=== PATIENT | female | born 1960 | race Caucasian/White ===

== ENCOUNTER → 2019-11-27 | Outpatient (CLI) | payer MEDICAID ==
--- NOTE | 2019-11-27 11:20 | MR ---
EXAMINATION TYPE: MR knee RT wo con DATE OF EXAM: 11/27/2019 COMPARISON: None HISTORY: Pain right knee TECHNIQUE: Multiplanar, multisequence imaging of the right knee is performed without IV contrast. FINDINGS: The imaging is limited due to patient body adenitis MEDIAL MENISCUS: Posterior horn of the medial meniscus shows some diffuse abnormal signal and is atte nuated in size, likely a complex tear is present LATERAL MENISCUS: Anterior and posterior horns are intact without tear. CRUCIATE LIGAMENTS: Anterior cruciate ligament is not well-defined, there is abnormal signal present near the insertion, findings suggest at least a partial tear, posterior cruciate ligament is thought to be intact but shows some increased intrinsic signal, there may be strain or partial tear COLLATERAL LIGAMENTS: The medial collateral ligament and lateral collateral ligament complex are inta ct and unremarkable. EXTENSOR MECHANISM: Visualized quadriceps and patellar tendons are intact, the level of insertion of the patellar tendon there is some increased signal, there may be some mucoid degeneration or partial tear.. EFFUSION: There is a small suprapatellar joint effusion extending medially and laterally POPLITEAL CYST: Small semimembranosus gastrocnemius cyst is present measuring 2.2 x 1.0 x 2.6 cm TRICOMPARTMENT SPACES: There is tricompartmental marginal spurring present, joint space loss present especially in the medial compartment CARTILAGE: Grade III-IV chondromalacia is present in the medial compartment, grade 2-III chondromalac ia present laterally and at the posterior patella BONE MARROW SIGNAL: Subchondral geode formation present along the proximal tibia medially. OTHER: Subcutaneous edema present in the prepatellar location. IMPRESSION: Osteoarthritis. Complex tear the posterior horn the medial meniscus. At least a partial tear of the a nterior cruciate ligament is suspected. Joint effusion and Sánchez's cyst. Additional findings above.
== END | disposition home or self-care (01) ==
LOC: RADMRIMAIN 08:51
PROVIDERS: ATTEND Orthopaedic Surgery
DX: M17.11 Unilateral primary osteoarthritis, right knee (principal); S83.241A Other tear of medial meniscus, current injury, right knee, initial encounter; M71.21 Synovial cyst of popliteal space [Baker], right knee; M25.562 Pain in left knee

== ENCOUNTER 2019-12-12 12:03 | Day surgery (SDC) | payer MEDICAID ==
[2019-12-06 15:54] VITALS: BMI 67.3
[~2019-12-12 12:03] MED LIST: DEXAMETHASONE SOD PHOSPHATE 10 MG/ML 1 ML VIAL IV ONE; LACTATED RINGERS 1,000 ML IV SCH; ONDANSETRON 4 MG/2 ML VIAL IVP ONE; Pre Op ABX Message 1 EACH MISC MISCELLANE ONE
[2019-12-12] MEDS ORDERED: LIDOCAINE 1% (10MG/ML) FOR IV START INTRADERMA ONE (12:34)
[2019-12-12] MEDS ORDERED: GLYCOPYRROLATE 0.2 MG/ML 2 ML VIAL ONE (13:18)
[2019-12-12] MEDS ORDERED: NEOSTIGMINE 1 MG/ML 10 ML VIAL ONE (13:18)
[2019-12-12] MEDS ORDERED: PROPOFOL 10 MG/ML 20 ML VIAL IV ONE (13:18)
[2019-12-12] MEDS ORDERED: LIDOCAINE 1% INJ 10MG/ML (20 ML MDV) ONE (13:18)
[2019-12-12] MEDS ORDERED: SUCCINYLCHOLINE CHLORIDE VIAL 200 MG/10 ML VIAL IV ONE (13:18)
[2019-12-12] MEDS ORDERED: MIDAZOLAM 2 MG/2 ML VIAL ONE (13:18)
[2019-12-12] MEDS ORDERED: fentaNYL (PF) 50 MCG/ML 2 ML AMP ONE (13:18)
[2019-12-12] MEDS ORDERED: ROCURONIUM 10 MG/ML (10 ML VIAL) IV ONE (13:18)
[2019-12-12] MEDS ORDERED: SODIUM CHLORIDE 0.9% 100 ML with ceFAZolin 3,000 MG IV ONE ×2 (13:23)
[2019-12-12] MEDS ORDERED: BUPIVACAINE (PF) 0.25% 30 ML VIAL SQ ONE (13:54)
[2019-12-12] MEDS: HYDROmorphone 0.5 MG/0.5 ML SYRINGE IVP PRN ×4 (14:23→14:50)
--- NOTE | 2019-12-12 14:25 | P.OP ---
Date of Procedure: 12/12/19 Preoperative Diagnosis: 1. torn medial meniscus right knee 2. Osteoarthritis right knee Postoperative Diagnosis: 1. torn medial meniscus right knee 2. Torn lateral meniscus right knee 3. Grade 2-3 chondromalacia of the medial femoral, lateral femoral, and patellofemoral compartments 4. Synovitis Procedure(s) Performed: 1. arthroscopy of the right knee with partial medial meniscectomy (25% of meniscus excised) 2. Partial lateral meniscectomy (10% of the meniscus excised) 3. Chondroplasty of the medial femoral, lateral femoral, patellofemoral compartments 4. Partial synovectomy of the medial femoral, lateral femoral, patellofemoral compartments [facility] Surgeon: Casa Navas Estimated Blood Loss (ml): 5 Pathology: none sent Condition: stable Disposition: PACU Indications for Procedure: this is a 59-year-old female presented my office with pain in her right knee. An MRI demonstrated torn medial meniscus and osteoarthritis of right knee after discussing the surgical nonsurgical treatment options at length she was to proceed with arthroscopic debridement of right knee and informed consent was obtained. Operative Findings: the operative findings are consistent with a torn medial and lateral meniscus as well as grade 2-3 chondral malacia of the medial femoral, lateral femoral, patellofemoral compartments and synovitis Description of Procedure: Patient was seen and evaluated in the preoperative area, the operative site was marked with a skin marker. The patient was then brought to the operating room and given 1 g of Ancef intravenously. A general anesthetic was administered by the anesthesia department. Tourniquet was placed on the right upper thigh and theright lower extremity was then prepped and draped in usual sterile fashion. A universal timeout was then performed confirming the patient's name, surgical site, ALLERGIES, and consent. The limb was then exsanguinated and tourniquet insufflated to 350 mmHg. Standard inferior medial and inferior lateral portals were established in the knee. The trochar was inserted in the inferolateral portal. Examination began at the patellofemoral joint. There is noted to be grade 2-3 chondral malacia the patellofemoral compartment and a moderate amount of synovitis. Next the medial compartment was visualized. There was a tear of the posterior horn of the medial meniscus. There was grade 2-3 chondral malacia the mediofemoral compartment and synovitis. The notch area was then visualized and thr ACL was intact. The Lateral compartment was then visualized and the lateral meniscus was found to have a tear of the posterior horn of the meniscus, evidence of grade 2-3 chondromalacia, and a mild amount of synovitis. Next, using an arthroscopic shaver and a biter, partial medial meniscectomy was performed stable margins. Approximately 25% of meniscus was excised. A partial lateral meniscectomy was also performed with approximately 10% of meniscus excised. A partial synovectomy is performed the medial femoral, lateral femoral, patellofemoral compartments. Chondroplasty was also performed of the medial femoral, lateral femoral, and patellofemoral compartments of the knee. Knee was then copiously irrigated, instruments removed, incisions were closed with 4-0 nylon. A sterile dressing was then applied, and the tourniquet was released. Patient was then transferred to recovery room in stable condition.
[2019-12-12] MEDS ORDERED: KETOROLAC 15 MG/ML 1 ML VIAL IVP ONE (14:35)
[2019-12-12 14:46] VITALS: TEMP 97.3
[2019-12-12] MEDS ORDERED: LACTATED RINGERS 1,000 ML IV ONE (15:24)
[2019-12-12 15:34] VITALS: RESP 16
[2019-12-12] MEDS ORDERED: HYDROcodone/APAP 7.5-325MG 1 EACH TAB PO ONE (15:40)
[2019-12-12] MEDS ORDERED: HYDROcodone/APAP 7.5-325MG 1 EACH TAB ONE (15:43)
[2019-12-12 15:47] VITALS: BP 117/68; PULSE 80
== END 2019-12-12 16:40 | disposition home or self-care (01) ==
LOC: OR 12:03
PROVIDERS: ATTEND Orthopaedic Surgery
DX: M23.203 Derangement of unspecified medial meniscus due to old tear or injury, right knee (principal); M23.200 Derangement of unspecified lateral meniscus due to old tear or injury, right knee; M17.11 Unilateral primary osteoarthritis, right knee; M94.261 Chondromalacia, right knee; M65.9 Synovitis and tenosynovitis, unspecified; F32.9 Major depressive disorder, single episode, unspecified; R51.9 Headache, unspecified; Z87.891 Personal history of nicotine dependence; Z98.891 History of uterine scar from previous surgery; Z98.890 Other specified postprocedural states; Z83.3 Family history of diabetes mellitus; Z82.49 Family history of ischemic heart disease and other diseases of the circulatory system; Z79.1 Long term (current) use of non-steroidal anti-inflammatories (NSAID); Z79.890 Hormone replacement therapy; Z79.899 Other long term (current) drug therapy; Z88.5 Allergy status to narcotic agent; Z88.8 Allergy status to other drugs, medicaments and biological substances
CPT/HCPCS: 29880; J2250; J0330; J1100; J2710; J2405; J0690; J2001; J3010; J1885; J2704; J1170

== ENCOUNTER → 2021-10-08 | Outpatient (CLI) | payer MEDICAID ==
[2021-10-08 16:17] VITALS: PULSE 89; TEMP 98.7; BMI 70.0
--- NOTE | 2021-10-08 16:49 | P.HPBAR ---
Bariatric H&P - History & Physicial H&P Date: 10/08/21 History & Physicial: Visit/CC: new patient Patient initial contact: Initial weight: 158.939 kg Initial weight in pounds: 350.40 Height: 5 ft 3.75 in Initial BMI: 60.6 Last weight: Current weight: 183.705 kg Current weight in pounds: 405.00 Current BMI: 70.0 [place] body weight (based on NIH guidelines): 53.864 kg Excess body weight loss: The patient is a 61 year-old F who presents for Bariatric Assessment. She comes in after back surgery. She has tried 6 years ago. She has more medical co-morbidities. She is looking into the sleeve. She has sleep apnea. Was seen before. 7 months needed. Has new co-morbidities. Past Medical History Past Medical History: Fibromyalgia, GERD/Reflux, Musculoskeletal Disorder, Osteoarthritis (OA), Sleep Apnea/CPAP/BIPAP, Thyroid Disorder Additional Past Medical History / Comment(s): Migraines, oxx SOB, gout, kidney/ureter stones, Lower back pain, Bilat knee pain. Uses CPAP. Varicose veins, poor circulation legs w/ edema BLE. "borderline" DM History of Any Multi-Drug Resistant Organisms: None Reported Past Surgical History: Back Surgery, Section, Cholecystectomy, Orthopedic Surgery, Tonsillectomy, Uterine Ablation Additional Past Surgical History / Comment(s): C-S x2, D&C x2, neck fusion, ACL left knee, EGD, Left ankle tendon/bone repair. Rt hip band stretched. Past Anesthesia/Blood Transfusion Reactions: No Reported Reaction Past Psychological History: Anxiety, Depression Additional Psychological History / Comment(s): occ panic attack Smoking Status: Former smoker Past Alcohol Use History: Occasional Past Drug Use History: None Reported - Past Family History Mother Family Medical History: Cancer, Deep Vein Thrombosis (DVT) Additional Family Medical History / Comment(s): lung cancer Sister(s) Family Medical History: Deep Vein Thrombosis (DVT) Surgical - Exam Vital Signs Temp Pulse 98.7 F 89 10/08/21 16:06 10/08/21 16:06 Bariatric Checklist Checklist: Plan: Checklist: EGD: 1. Hiatal hernia: 2. H. Pylori: HgbA1c: Vitamin D: Smoking: Former smoker Primary care physician referral: Josette Charles ([facility]) Psychiatry clearance: Cardiology clearance: Sleep study: Diet journal: VTE risk score: VTE risk level: Rehab needs at discharge:
[2021-10-09 09:22] VITALS: BP 148/73
== END | disposition home or self-care (01) ==
LOC: BARWHC3 15:38
PROVIDERS: ATTEND Surgery Plastic and Reconstructive Surgery
DX: E66.01 Morbid (severe) obesity due to excess calories (principal); K21.9 Gastro-esophageal reflux disease without esophagitis; E07.9 Disorder of thyroid, unspecified; M19.90 Unspecified osteoarthritis, unspecified site; Z68.44 Body mass index [BMI] 60.0-69.9, adult
CPT/HCPCS: 99213

== ENCOUNTER → 2021-11-26 | Outpatient (CLI) | payer MEDICAID ==
[2021-11-26 13:00] LABS: INR 0.9 (<1.2); Partial Thromboplastin Time 38.5 sec (22.0-30.0); Prothrombin Time 10.3 sec (9.0-12.0)
[2021-11-26 18:17] LABS: HCT 41.5 % (37.2-46.3); HGB 12.9 g/dL (12.0-15.0); MCH 29.8 pg (27.0-32.0); MCHC 31.1 g/dL (32.0-37.0); MCV 95.8 fL (80.0-97.0); Mean Platelet Volume 10.4 fL (9.5-12.2); NRBC Per 100 WBC 0 /100 WBCS (0.0-0.0); Platelet Count 225 X 10*3/uL (140-440); RBC 4.33 X 10*6/uL (4.10-5.20); RDW 12.8 % (11.5-14.5)
[2021-11-26 18:31] LABS: % Iron Saturation 23.12 (12.00-45.00); ALT 42 U/L (8-44); AST 41 U/L (13-35); African American GFR (CKD) 109.6 (60.0-200.0); Albumin/Globulin Ratio 1.59 (1.60-3.17); Alkaline Phosphatase 77 U/L (41-126); BUN/Creat Ratio 19.08 Ratio (12.00-20.00); Blood Urea Nitrogen 12.9 mg/dL (9.0-27.0); Calcium 9.1 mg/dL (8.7-10.3); Carbon Dioxide 29.1 mmol/L (20.0-27.5); Chloride 103 mmol/L (96-109); Globulin 2.5 g/dL (1.6-3.3); Glucose 115 mg/dL (70-110); Iron 82 ug/dL (50-170); Magnesium 1.8 mg/dL (1.5-2.4); Non-African American GFR(CKD) 94.6 (60.0-200.0); Phosphorus 3.4 mg/dL (2.4-5.1); Potassium 4.1 mmol/L (3.5-5.5); Sodium 140 mmol/L (135-145); Total Iron Binding Capacity 354 ug/dL (228-460); Total Protein 6.5 g/dL (6.2-8.2)
[2021-11-26 18:47] LABS: Chol/HDL Ratio 2.67 Ratio; LDL Cholesterol,Calculated 88.6 mg/dL (0.0-131.0); Prealbumin 17.1 mg/dL (18.0-42.0)
[2021-11-27 12:42] LABS: Zinc, Serum 63 ug/dL (60-130)
[2021-11-28 08:39] LABS: Vitamin A 39 ug/dL (38-106)
== END | disposition home or self-care (01) ==
LOC: LABWHC1 11:58
PROVIDERS: ATTEND Surgery Plastic and Reconstructive Surgery
DX: E66.01 Morbid (severe) obesity due to excess calories (principal); D50.8 Other iron deficiency anemias; K91.2 Postsurgical malabsorption, not elsewhere classified; E44.0 Moderate protein-calorie malnutrition; K74.1 Hepatic sclerosis; N19 Unspecified kidney failure; T56.894A Toxic effect of other metals, undetermined, initial encounter; K50.90 Crohn's disease, unspecified, without complications; Z71.51 Drug abuse counseling and surveillance of drug abuser; E89.1 Postprocedural hypoinsulinemia; E55.9 Vitamin D deficiency, unspecified
CPT/HCPCS: 84255; 84134; 84425; 80061; 80053; 82607; 82728; 82525; 82746; 83540; 83550; 83735; 84100; 84443; 84590; 84630; 85027; 85610; 85730; 82306; 80323; 83970; 80307; 93005; 36415; G0482; 83036

== ENCOUNTER 2021-12-01 07:25 | Day surgery (SDC) | payer MEDICAID ==
[2021-11-28 10:51] VITALS: BMI 68.5
[~2021-12-01 07:25] MED LIST changes: -DEXAMETHASONE SOD PHOSPHATE 10 MG/ML 1 ML VIAL IV ONE; +LIDOCAINE 1% (10MG/ML) FOR IV START INTRADERMA PRN; -ONDANSETRON 4 MG/2 ML VIAL IVP ONE; -Pre Op ABX Message 1 EACH MISC MISCELLANE ONE
[2021-12-01 08:12] VITALS: TEMP 97.1
--- NOTE | 2021-12-01 08:20 | P.GSHP ---
History of Present Illness H&P Date: 12/01/21 CHIEF COMPLAINT: GERD and colon screen HISTORY OF PRESENT ILLNESS: The patient is a 61-year-old female who presents with gastroesophageal reflux disease and need for colon screen. Upper and lower endoscopy were offered for further evaluation and management. PAST MEDICAL HISTORY: Please see list. PAST SURGICAL HISTORY: Please see list. MEDICATIONS: Please see list. ALLERGIES: Please see list. SOCIAL HISTORY: No illicit drug use FAMILY HISTORY: No reports of Crohn disease or ulcerative colitis. REVIEW OF ORGAN SYSTEMS: CONSTITUTIONAL: No reports of fevers or chills. GI: Denies any blood in stools or constipation. PHYSICAL EXAM: VITAL SIGNS: Stable GENERAL: Well-developed pleasant in no acute distress. HEENT: No scleral icterus. Extraocular movements grossly intact. Moist buccal mucosa. NECK: Supple without lymphadenopathy. CHEST: Unlabored respirations. Equal bilateral excursions. CARDIOVASCULAR: Regular rate and rhythm. Distal 2+ pulses. ABDOMEN: Soft, nondistended. MUSCULOSKELETAL: No clubbing, cyanosis, or edema. ASSESSMENT: 1. Gastroesophageal reflux disease 2. Colon screen. PLAN: 1. Recommend proceeding with an upper and lower endoscopy Past Medical History Past Medical History: Fibromyalgia, GERD/Reflux, Musculoskeletal Disorder, Osteoarthritis (OA), Sleep Apnea/CPAP/BIPAP, Thyroid Disorder Additional Past Medical History / Comment(s): Migraines, oxx SOB, gout, kidney/u reter stones, Lower back pain, Bilat knee pain. Uses CPAP. Varicose veins, poor circulation legs w/ edema BLE. "borderline" DM History of Any Multi-Drug Resistant Organisms: None Reported Past Surgical History: Back Surgery, Section, Cholecystectomy, Orthopedic Surgery, Tonsillectomy, Uterine Ablation Additional Past Surgical History / Comment(s): C-S x2, D&C x2, neck fusion, ACL left knee, EGD, Left ankle tendon/bone repair. Rt hip band stretched. COLONOSCOPY Past Anesthesia/Blood Transfusion Reactions: No Reported Reaction Smoking Status: Former smoker - Past Family History Mother Family Medical History: Cancer, Deep Vein Thrombosis (DVT) Additional Family Medical History / Comment(s): lung cancer Sister(s) Family Medical History: Deep Vein Thrombosis (DVT) Medications and Allergies Home Medications Medication Instructions Recorded Confirmed Type DULoxetine HCL [Cymbalta] 90 mg PO HS 09/29/17 12/01/21 History HYDROcodone/APAP 5-325MG [[place] 1 tab PO Q4H PRN 09/29/17 12/01/21 History 5-325] Ibuprofen [Motrin] 800 mg PO TID PRN 09/29/17 12/01/21 History Levothyroxine Sodium [Synthroid] 137 mcg PO HS 09/29/17 12/01/21 History Calcium Carbonate [Tums] 500 - 1,000 mg PO DIRECTED PRN 12/06/19 12/01/21 History Mirabegron [Myrbetriq] 50 mg PO HS 10/08/21 12/01/21 History Allergies Allergy/AdvReac Type Severity Reaction Status Date / Time carbamazepine [From Tegretol] Allergy Intermediate Rash/Hives Verified 12/01/21 08:03 adhesive tape Allergy red itchy Verified 12/01/21 08:03 skin morphine AdvReac Intermediate shakes Verified 12/01/21 08:03 omeprazole AdvReac Diarrhea Verified 12/01/21 08:03 Surgical - Exam Vital Signs Temp Pulse Resp BP Pulse Ox 97.1 F L 89 15 155/67 97 12/01/21 08:11 12/01/21 08:11 12/01/21 08:11 12/01/21 08:11 12/01/21 08:11
[2021-12-01] MEDS ORDERED: MIDAZOLAM 2 MG/2 ML VIAL ONE (08:34)
[2021-12-01] MEDS ORDERED: PROPOFOL 10 MG/ML 20 ML VIAL IV ONE (08:34)
[2021-12-01] MEDS ORDERED: LIDOCAINE 2% INJ 20 MG/ML (2 ML VIAL) ONE (08:34)
--- NOTE | 2021-12-01 09:08 | P.PCN ---
Date of Procedure: 12/01/21 Description of Procedure: PREOPERATIVE DIAGNOSIS: Colonoscopy screening POSTOPERATIVE DIAGNOSIS: Tubular adenoma transverse colon Sigmoid diverticulosis Internal hemorrhoids, grade 2 OPERATION: Colonoscopy to the ileocecal valve and appendiceal orifice, cecum Colonoscopy with hot snare polypectomy SURGEON: Kellie Pittman MD. ANESTHESIA: MAC. INDICATIONS: The patient is an 61-year-old female who presents for colonoscopy screening. Benefits and risks were described and informed consent was obtained. DESCRIPTION OF PROCEDURE: The patient had undergone Sutab prep. The patient had been brought into the operating room and laid in the left lateral decubitus position. After adequate intravenous sedation, the rectum was examined with 2% lidocaine jelly. No external hemorrhoids were encountered. The rectal tone was within normal limits. No lesions were palpated in the rectal vault. An Olympus colonoscope was advanced until the cecum, ileocecal valve and appendiceal orifice were clearly viewed. The prep was fair. Sigmoid diverticulosis was encountered. Colonic polyps were found and removed. No evidence of focal colitis was found. Retroflexion of the scope demonstrated grade 2 internal hemorrhoids without active bleeding or inflammation. The colon was desufflated. The patient had tolerated the procedure well. Withdrawal time was over 6 minutes. FINDINGS: Aronchick preparation quality scale 3 (1-5) Internal hemorrhoids, grade 2 No external hemorrhoids No arteriovenous malformations. Sigmoid diverticulosis, moderate Removal of 1 polyps: - Snare polypectomy proximal transverse colon, 5 mm tubulovillous adenoma polyp. No focal colitis. RECOMMENDATIONS: Repeat colonoscopy in 3 years, 2024 Plan - Discharge Summary Discharge Rx Participant: No New Discharge Prescriptions: Continue HYDROcodone/APAP 5-325MG [[place] 5-325] 1 tab PO Q4H PRN PRN Reason: Pain DULoxetine HCL [Cymbalta] 90 mg PO HS Levothyroxine Sodium [Synthroid] 137 mcg PO HS Ibuprofen [Motrin] 800 mg PO TID PRN PRN Reason: Pain Calcium Carbonate [Tums] 500 - 1,000 mg PO DIRECTED PRN PRN Reason: GERD Mirabegron [Myrbetriq] 50 mg PO HS Discharge Medication List DULoxetine HCL [Cymbalta] 90 mg PO HS 09/29/17 [History] HYDROcodone/APAP 5-325MG [Marana 5-325] 1 tab PO Q4H PRN 09/29/17 [History] Ibuprofen [Motrin] 800 mg PO TID PRN 09/29/17 [History] Levothyroxine Sodium [Synthroid] 137 mcg PO HS 09/29/17 [History] Calcium Carbonate [Tums] 500 - 1,000 mg PO DIRECTED PRN 12/06/19 [History] Mirabegron [Myrbetriq] 50 mg PO HS 10/08/21 [History] Follow up [facility]ment(s[facility]Ref[facility] [place] [facility] Patient Instructions/Handouts: Diverticulosis Diet (GEN), Diverticulosis (DC) Activity/Diet/Wound Care/Special Instructions: Repeat colonoscopy in 3 years, 2024 Discharge Disposition: HOME SELF-CARE
--- NOTE | 2021-12-01 09:12 | P.PCN ---
Date of Procedure: 12/01/21 Description of Procedure: PREOPERATIVE DIAGNOSIS: Gastroesophageal reflux disease. Morbid obesity. POSTOPERATIVE DIAGNOSIS: Gastroesophageal reflux disease. Morbid obesity. Gastritis. OPERATION: Esophagogastroduodenoscopy with biopsies along antrum and duodenal SURGEON: Kellie Pittman MD ANESTHESIA: MAC. INDICATIONS: The patient is a 61-year-old female who presents with reflux disease. Benefits and risks of the procedure were described. Informed consent was obtained. DESCRIPTION: The patient was brought into the endoscopy suite and laid in the left lateral decubitus position. An Olympus gastroscope was passed along the posterior oropharynx down to the distal esophagus where the squamocolumnar junction was encountered at 40 cm from the incisors. The stomach was entered and no bile reflux was found. Additional findings are listed below. Biopsies with cold forceps were obtained of the antrum. The first through third portion of the duodenum was examined. Retroflexion of the scope confirmed Hill grade 2 lower esophageal valve. The squamocolumnar junction demonstrated LA grade B erosive esophagitis. The stomach was desufflated. The patient tolerated the procedure well. FINDINGS: Squamocolumnar junction 40 cm from the incisors. Diaphragmatic hiatus at 40 cm. Hill grade 2 lower esophageal valve. LA grade B erosive esophagitis with bile reflux Cold forceps biopsies obtained of duodenum Chronic gastritis RECOMMENDATIONS: Upper endoscopy as needed.
[2021-12-01 09:16] VITALS: RESP 16
[2021-12-01 09:35] VITALS: BP 105/59; PULSE 81
== END 2021-12-01 09:42 | disposition home or self-care (01) ==
LOC: ORWHC2ENDO 07:25
PROVIDERS: ATTEND Surgery Plastic and Reconstructive Surgery
DX: Z12.11 Encounter for screening for malignant neoplasm of colon (principal); K29.50 Unspecified chronic gastritis without bleeding; K31.9 Disease of stomach and duodenum, unspecified; K63.5 Polyp of colon; K57.30 Diverticulosis of large intestine without perforation or abscess without bleeding; K64.8 Other hemorrhoids; K21.9 Gastro-esophageal reflux disease without esophagitis; E66.01 Morbid (severe) obesity due to excess calories; M79.7 Fibromyalgia; M19.90 Unspecified osteoarthritis, unspecified site; G47.33 Obstructive sleep apnea (adult) (pediatric); E07.9 Disorder of thyroid, unspecified; G43.909 Migraine, unspecified, not intractable, without status migrainosus; M10.9 Gout, unspecified; N20.2 Calculus of kidney with calculus of ureter; M54.50 Low back pain, unspecified; M25.562 Pain in left knee; M25.561 Pain in right knee; Z98.890 Other specified postprocedural states; Z68.41 Body mass index [BMI] 40.0-44.9, adult; Z90.49 Acquired absence of other specified parts of digestive tract; Z98.891 History of uterine scar from previous surgery; Z87.891 Personal history of nicotine dependence; Z80.9 Family history of malignant neoplasm, unspecified; Z83.2 Family history of diseases of the blood and blood-forming organs and certain disorders involving the immune mechanism; Z79.1 Long term (current) use of non-steroidal anti-inflammatories (NSAID); Z79.899 Other long term (current) drug therapy; Z79.890 Hormone replacement therapy; Z88.5 Allergy status to narcotic agent; Z88.8 Allergy status to other drugs, medicaments and biological substances; Z91.040 Latex allergy status
CPT/HCPCS: 88305; 45385; 43239; J2250; J2704; J2001

== ENCOUNTER → 2022-03-02 | Outpatient (CLI) | payer MEDICAID ==
[2022-03-02 11:27] VITALS: BMI 69.5
== END ==
LOC: BARWHC3 08:29
PROVIDERS: ATTEND Surgery Plastic and Reconstructive Surgery
DX: Z71.3 Dietary counseling and surveillance (principal); E66.01 Morbid (severe) obesity due to excess calories; Z88.8 Allergy status to other drugs, medicaments and biological substances; Z88.5 Allergy status to narcotic agent; Z91.048 Other nonmedicinal substance allergy status; Z68.44 Body mass index [BMI] 60.0-69.9, adult; Z87.891 Personal history of nicotine dependence
CPT/HCPCS: 97804

== ENCOUNTER → 2022-06-24 | Outpatient (CLI) | payer MEDICAID ==
[2022-06-24 14:21] VITALS: BP 144/74; PULSE 84; TEMP 98.4; BMI 69.7
--- NOTE | 2022-06-24 14:45 | P.BASOAP ---
Subjective Progress Note Date: 06/24/22 She does not take bsg at home. Arpan has lost 15 pounds.Consent signed for sleeve. Objective - Vital Signs Vital signs: Vital Signs Temp 98.4 F 06/24/22 14:16 Pulse 84 06/24/22 14:16 Resp BP 144/74 06/24/22 14:16 Pulse Ox FiO2 Intake & Output 06/23/22 06/24/22 06/24/22 18:59 06:59 18:59 Weight 182.798 kg Assessment/Plan Plan: Date: 06/24/22 Initial Weight: 183.705 kg Initial BMI: 70.0 Current Weight: 182.798 kg Current BMI: 69.7 Type of Surgery: Total Volume in Band: Previous Volume: Volume Removed: Volume Added: Band Size:
[2022-06-25 02:14] LABS: African American GFR (CKD) 107.6 (60.0-200.0); Albumin 4.3 g/dL (3.8-4.9); Albumin/Globulin Ratio 1.59 (1.60-3.17); Anion Gap 12.5 mmol/L (10.00-18.00); BUN/Creat Ratio 21.57 Ratio (12.00-20.00); Blood Urea Nitrogen 15.1 mg/dL (9.0-27.0); Calcium 9.7 mg/dL (8.7-10.3); Carbon Dioxide 24.5 mmol/L (20.0-27.5); Globulin 2.7 g/dL (1.6-3.3); Non-African American GFR(CKD) 92.9 (60.0-200.0); Potassium 4.1 mmol/L (3.5-5.5); Total Bilirubin 0.4 mg/dL (0.30-1.20)
[2022-06-25 02:24] LABS: Basophils % (A) 0.9 %; Eosinophils # (A) 0.09 X 10*3/uL (0.04-0.35); Eosinophils % (A) 0.9 %; HCT 40.9 % (37.2-46.3); HGB 13.3 g/dL (12.0-15.0); Immature Grans, Automated 0.3 %; Lymphocytes % (A) 38.9 %; MCH 31.4 pg (27.0-32.0); MCHC 32.5 g/dL (32.0-37.0); MCV 96.5 fL (80.0-97.0); Mean Platelet Volume 10.6 fL (9.5-12.2); Monocytes # (A) 0.63 X 10*3/uL (0.20-1.00); NRBC Per 100 WBC 0 /100 WBCS (0.0-0.0); Neutrophils # (A) 5.59 X 10*3/uL (1.80-7.70); Platelet Count 254 X 10*3/uL (140-440); RBC 4.24 X 10*6/uL (4.10-5.20); RDW 13.9 % (11.5-14.5); WBC 10.54 X 10*3/uL (4.50-10.00)
== END ==
LOC: BARWHC3 13:52
PROVIDERS: ATTEND Surgery Plastic and Reconstructive Surgery
DX: E66.01 Morbid (severe) obesity due to excess calories (principal); Z68.44 Body mass index [BMI] 60.0-69.9, adult; Z88.5 Allergy status to narcotic agent; Z91.048 Other nonmedicinal substance allergy status; Z87.891 Personal history of nicotine dependence
CPT/HCPCS: 80053; 85025; 99211

== ENCOUNTER 2022-06-29 13:10 | Inpatient (IN) | payer MEDICAID ==
--- NOTE | 2022-06-29 08:20 | P.GSHP ---
History of Present Illness H&P Date: 06/29/22 CHIEF COMPLAINT: Morbid obesity HISTORY OF PRESENT ILLNESS: Vianney Gruber is a 62-year-old female who presents with lifelong morbid obesity. She has been undergoing weight loss options since 2016, 7 years now. She presents with continued weight gain from 348 pounds to 385 pounds in the past 5 years. For her height of 5 foot 3 inches, her body mass index has increased from 61.8 to 68.4. She is looking into the sleeve gastrectomy . PAST MEDICAL HISTORY: 1. Moderate to severe obstructive sleep apnea. 2. Anxiety. 3. Fibromyalgia. 4. Tobacco in remission. 5. Hypothyroidism. 6. Osteoarthritis of the lower back. 7. Osteoarthritis of the left ankle. 8. Osteoarthritis of the knee. 9. Gastroesophageal reflux disease. 10. Morbid obesity, initial BMI 66.7 11. Dyspnea. 12. Gastritis. PAST SURGICAL HISTORY: 1. ACL repair the knee. 2. Lysis of tendon along the right thigh. 3. Sleep apnea titration with CPAP. 4. Colonoscopy. 5. Cholecystectomy. 6. EGD. MEDICATIONS: 1. Xanax. 2. Cymbalta 3. Hydrocodone acetaminophen. 4. Levothyroxine. 5. Motrin. 6. Zantac. ALLERGIES: 1. TEGRETOL. 2. ADHESIVE TAPE. 3. MORPHINE. SOCIAL HISTORY: Former tobacco use. No reports of overt food allergies; however, she has intolerance to onions. FAMILY HISTORY: Pertinent for morbid obesity as well as diverticulitis. No history of esophageal or stomach cancer. No history of ulcerative colitis or Crohn's disease. REVIEW OF ORGAN SYSTEMS: CONSTITUTIONAL: [place] body weight of 140 pounds. Highest weight of 370 pounds. HEENT: No active troubles with vision or hearing. Denies dysphagia. ENDOCRINE: Has hypothyroidism. No overt evidence of diabetes type 2. RESPIRATORY: Has obstructive sleep apnea, moderate to severe. She requires CPAP machine; however, she is noncompliant. She reports dyspnea on exertion. CARDIOVASCULAR: No reports of recent chest pain or heart attack. GASTROINTESTINAL: Has gastroesophageal reflux disease including gastritis. MUSCULOSKELETAL: Reports lower back pain including osteoarthritis of the knee as well as left ankle pain. History of fibromyalgia. No reports of stroke or seizure disorder. Denies headaches. HEMATOLOGIC: No reports of DVTs or easy bruising or bleeding. PSYCH: History of depression currently on antidepressant medications. GENITOURINARY: New kidney stones. No blood in urine. DIETARY HISTORY: Prior history of medications for obesity including Contrave, prior medical supervised weight loss performed. PHYSICAL EXAM: GENERAL: Well-developed female no acute distress. ABDOMEN: Obese, soft, nontender, nondistended. HEENT: No scleral icterus. Extraocular movements grossly intact. Moist buccal mucosa. NECK: Supple without lymphadenopathy. CHEST: Nonlabored respirations with equal bilateral excursions. CARDIOVASCULAR: Regular rate and rhythm. MUSCULOSKELETAL: No clubbing, cyanosis, or edema. NEURO: No focal or lateralizing signs. Cranial nerves II through XII grossly within normal limits. PSYCH: Appropriate affect. Alert and oriented to person, place and time. SKIN: Well perfused. Good skin turgor. ASSESSMENT: 1. Morbid obesity due to excess calories. 2. Body mass index initial 66.7 3. Moderate to severe chronic obstructive sleep apnea, noncompliant with therapy. 4. Former tobacco use. 5. Hypothyroidism. 6. Fibromyalgia. 7. Gastroesophageal reflux disease. 8. Anxiety. 9. Family history of morbid obesity. 10. Osteoarthritis of lower back secondary to morbid obesity. 11. Osteoarthritis of the knee secondary to morbid obesity. 12. Osteoarthritis of the left ankle secondary to morbid obesity. 13. Prior history of depression. 14. Gastritis. 15. Adverse reaction to omeprazole. PLAN: 1. Bariatric options between a sleeve, band and a Rashad-en-Y gastric bypass were reviewed in detail. The patient elected for a sleeve gastrectomy. Robotic assisted approach described. 2. The [place] [facility] Data was also reviewed with benefits and risks as described. 3. An 8 page second-generation bariatric consent form was reviewed in detail including potential of bleeding, infection, leaks, adequate weight loss, nutritional deficiencies which the patient demonstrated understanding of the risks. 4. A 2 week high-protein low caloric 800 kcal diet described to address h epatomegaly. 5. Preoperative labs including complete metabolic panel and CBC with type and screen recommended. 6. DVT prophylaxis per [place] [facility]. 7. Antibiotic prophylaxis. 8. Inpatient hospitalization anticipated for more than 2 nights. 9. All questions and concerns were addressed with the patient. 10. The patient is at elevated risk for perioperative complications with sleep apnea and hypertensive heart disease and body mass index over 60 11. Overall, patient has expressed understanding of bariatric care including postoperative diet and commitment of lifestyle. Patient should benefit from surgical intervention for correction of morbid obesity. 12. She is elevated risk due to pre-existing comorbid conditions Past Medical History Past Medical History: Diabetes Mellitus, Fibromyalgia, GERD/Reflux, Musculoskeletal Disorder, Osteoarthritis (OA), Sleep Apnea/CPAP/BIPAP, Thyroid Disorder Additional Past Medical History / Comment(s): Migraines, occ. SOB, gout, kidney/ureter stones, Lower back pain, Bilat knee pain. Uses CPAP. Varicose veins, poor circulation legs w/ edema BLE. "borderline" DM History of Any Multi-Drug Resistant Organisms: None Reported Past Surgical History: Back Surgery, Section, Cholecystectomy, Orth opedic Surgery, Tonsillectomy, Uterine Ablation Additional Past Surgical History / Comment(s): C-S x2, D&C x2, neck fusion, lumbar surg., ACL left knee, EGD, Left ankle tendon/bone repair. Rt hip band stretched. Past Anesthesia/Blood Transfusion Reactions: Postoperative Nausea & Vomiting (PONV) Additional Past Anesthesia/Blood Transfusion Reaction / Comment(s): slow to wake up, mother seems to need more anesthesia than normal to be sedated Smoking Status: Former smoker - Past Family History Mother Family Medical History: Cancer, Deep Vein Thrombosis (DVT) Additional Family Medical History / Comment(s): lung cancer Sister(s) Family Medical History: Deep Vein Thrombosis (DVT) Medications and Allergies Home Medications Medication Instructions Recorded Confirmed Type Levothyroxine Sodium [Synthroid] 137 mcg PO HS 09/29/17 06/24/22 History Restful Legs 1 tab PO DIRECTED PRN 06/24/22 06/24/22 History Rimegepant Sulfate [Nurtec Odt] 75 mg PO DIRECTED PRN 06/24/22 06/24/22 History LORazepam [Ativan] 0.5 mg PO BID PRN 06/26/22 06/26/22 History metFORMIN HCL 500 mg PO HS 06/26/22 06/26/22 History Allergies Allergy/AdvReac Type Severity Reaction Status Date / Time carbamazepine [From Tegretol] Allergy Intermediate Rash/Hives Verified 06/24/22 11:39 morphine AdvReac Intermediate shakes Verified 06/24/22 11:39 adhesive tape AdvReac red itchy Verified 06/24/22 11:39 skin omeprazole AdvReac Diarrhea Verified 06/24/22 11:39
[~2022-06-29 13:10] MED LIST changes: +CHLORHEXIDINE GLUCONATE 15 ML CUP MUCOUS MEM PRN; +DEXAMETHASONE SOD PHOSPHATE 4 MG/ML 1 ML VIAL IV ONE; +ENOXAPARIN 40 MG/0.4 ML SYRINGE SQ PRN; -LACTATED RINGERS 1,000 ML IV SCH; -LIDOCAINE 1% (10MG/ML) FOR IV START INTRADERMA PRN; +ONDANSETRON 4 MG/2 ML VIAL IVP ONE; +ceFAZolin 3 GM in SODIUM CHLORIDE 0.9% 100 ML IVPB PRN; +fentaNYL (PF) 50 MCG/ML 2 ML AMP IV PRN
[2022-06-29 15:21] LABS: Glucose,Whole Blood 90 mg/dL (70-110)
[2022-06-29] MEDS: LACTATED RINGERS 1,000 ML IV SCH (15:29)
[2022-06-29] MEDS ORDERED: ROCURONIUM 10 MG/ML (5 ML VIAL) IV ONE (16:22)
[2022-06-29] MEDS ORDERED: NEOSTIGMINE 1 MG/ML 10 ML VIAL ONE (16:22)
[2022-06-29] MEDS ORDERED: SUCCINYLCHOLINE CHLORIDE 200 MG/10 ML VIAL IV ONE (16:22)
[2022-06-29] MEDS ORDERED: GLYCOPYRROLATE 0.2 MG/ML 2 ML VIAL ONE (16:22)
[2022-06-29] MEDS ORDERED: MIDAZOLAM 2 MG/2 ML VIAL ONE (16:22)
[2022-06-29] MEDS ORDERED: LIDOCAINE 2% INJ 20 MG/ML (2 ML VIAL) ONE (16:22)
[2022-06-29] MEDS ORDERED: fentaNYL (PF) 50 MCG/ML 2 ML AMP ONE (16:22)
[2022-06-29] MEDS ORDERED: HYDROmorphone (PF) 1 MG/ML ONE (16:22)
[2022-06-29] MEDS ORDERED: PROPOFOL 10 MG/ML 20 ML VIAL IV ONE (16:22)
[2022-06-29] MEDS ORDERED: LIDOCAINE 0.5%-EPI 1:200,000 50 ML VIAL SQ ONE (16:55)
[2022-06-29] MEDS ORDERED: LACTATED RINGERS 1,000 ML IV ONE (18:13)
[2022-06-29 18:51] LABS: Glucose,Whole Blood 167 mg/dL (70-110)
[2022-06-29] MEDS ORDERED: NALOXONE 0.4 MG/ML 1 ML VIAL IV PRN (19:33)
[2022-06-29] MEDS ORDERED: diphenhydrAMINE 50 MG/ML 1 ML VIAL IVP PRN (19:34)
[2022-06-29] MEDS ORDERED: LORazepam 0.5 MG TAB PO PRN (19:36)
[2022-06-29] MEDS ORDERED: NON FORMULARY DRUG (Rimegepant Sulfate [Nurtec Odt] 75 MG Tablet) PO PRN (19:36)
--- NOTE | 2022-06-29 19:45 | P.OP ---
Date of Procedure: 06/29/22 Description of Procedure: SURGEON: SIDRA ZUÑIGA MD PREOPERATIVE DIAGNOSES: 1. Morbid obesity due to excess calories. 2. Body mass index initial 72.1 3. Moderate to severe chronic obstructive sleep apnea, noncompliant with therapy. 4. Former tobacco use. 5. Hypothyroidism. 6. Fibromyalgia. 7. Gastroesophageal reflux disease. 8. Anxiety. 9. Family history of morbid obesity. 10. Osteoarthritis of lower back secondary to morbid obesity. 11. Osteoarthritis of the knee secondary to morbid obesity. 12. Osteoarthritis of the left ankle secondary to morbid obesity. 13. Prior history of depression. 14. Gastritis. 15. Adverse reaction to omeprazole. POSTOPERATIVE DIAGNOSES: 1. Morbid obesity due to excess calories. 2. Body mass index initial 72.1 3. Moderate to severe chronic obstructive sleep apnea, noncompliant with therapy. 4. Former tobacco use. 5. Hypothyroidism. 6. Fibromyalgia. 7. Gastroesophageal reflux disease. 8. Anxiety. 9. Family history of morbid obesity. 10. Osteoarthritis of lower back secondary to morbid obesity. 11. Osteoarthritis of the knee secondary to morbid obesity. 12. Osteoarthritis of the left ankle secondary to morbid obesity. 13. Prior history of depression. 14. Gastritis. 15. Adverse reaction to omeprazole. 16. Fatty liver disease with early micronodular cirrhosis OPERATION: 1. Robotic assisted daVinci Xi laparoscopic sleeve gastrectomy with 40-Turkmen bougie, multiport. 2. Intraoperative esophagogastroduodenoscopy. ANESTHESIA: Gen. local anesthetic ESTIMATED BLOOD LOSS: 5 mL SPECIMENS REMOVED: Sleeve gastrectomy COMPLICATIONS: None. FINDINGS: 1. Negative intraoperative esophagogastrojejunoscopy leak test. 2. Fatty liver disease were early cirrhosis and no large hiatus hernia. 3. Total of 6 staplers used including 1 - 60 mm black robot kelby, 1 - 60 mm green and 4 - 60 mm greenrobot loads used to create the gastric sleeve. 4. Sleeve gastrectomy, 30 cm x 5 cm INDICATIONS: Vianney Gruber is a 62-year-old female who presents with lifelong morbid obesity. Her highest weight 406 pounds, BMI 72.1. For her height of 5 foot 3 inches, her ideal body weight is 140 pounds. She is 244 pounds overweight. She is looking into the sleeve gastrectomy . All surgical options for morbid obesity had been described using the [place] bariatric surgery collaborative comorbidity resolution including complication risk score. A second-generation bariatric consent form was described in detail including the possibility of protein malnutrition, leaks, gastric stricture, venous thrombosis, gastroesophageal reflux disease, need for further surgery for which she demonstrated understanding. Benefits and risks of the procedure were described at length. Informed consent was obtained. DESCRIPTION: The patient was brought into the operating room theater. Preoperatively she had received Lovenox subcutaneously for DVT prophylaxis. Additionally she had Peridex oral solution as an oral decontaminant. After general induction, the abdomen was prepped and draped in standard sterile fashion. An Ioban draping was placed along the abdomen. A robotic da Angel Xi system was prepped and primed. At 15 cm from the xiphoid, proposed port sites were marked with indelible marker along the anterior axillary line bilaterally, mid axillary line bilaterally with each ports were marked 10 to 15 cm from each other. The robotic stapler port was marked for the right midclavicular line. A 5 mm 0 degrees laparoscopic trocar entry was performed along the left upper quadrant. The abdomen was insufflated to 15 mmHg pressure was tolerated well. Diagnostic laparoscopy demonstrated no injury to bowel, viscera, or mesentery. No evidence of large hiatus hernia was identified. The liver edge was sharp consistent with 2 week low-carb high-protein diet. However fatty liver disease with early micronodular cirrhosis was identified. Adhesions of the pelvis was identified. A 8 mm port was placed along the left upper abdominal wall after exchanging the 5 mm port. A separate 8 mm port was placed along the left lateral abdominal wall. Please note that the ports were placed at least 20 cm away from the target anatomy. Care was taken to check each robotic arms were safely away from collision with the bed or the patient. At the epigastrium, a medium sized Bettye liver retractor was placed under direct visualization with the Iron Precision Agronomist placed under the right shoulder of the patient. Next, 12-mm robot stapler port was placed along the right upper quadrant. The camera 8-mm port was maintained along the epigastrium. The patient was repositioned in reverse Trendelenburg position at 25-degrees after lowering the bed. The robot was docked along the left side of the patient. Using a grasper for arm 4, a vessel sealer for arm 3, including grasper for arm 1, the robotic system was docked and primed as described. Instruments were interchanged by the funeral home assistant for stapler loads. The camera was placed at 30- degrees down. I had sat at the console. The pylorus was identified and 6 cm proximally along the greater curvature of the stomach, the short gastrics were mobilized upwards to the angle of His using a vessel sealer. Hemostasis was excellent during this portion of the procedure. Next, the upper pole of the stomach was adherent to the left donnell, which was gently dissected free using atraumatic grasper. I went to the head of the bed and placed 40-Turkmen blunt bougie into the stomac h. The bougie was readjusted by the nurse safe and vault service mechanic. Robotic stapler black load 60 mm 1 followed by green 60 mm x 1 loads and blue 60 mm x 4 loads were used to create the sleeve. Initial firing was across the antrum of the stomach towards the angle of His. The staple line was linear without corkscrewing. The space from the angularis incisura of the sleeve was approximately 4 cm. I then went to the head of the bed to perform the intraoperative esophagogastroduodenoscopy leak test. The bougie was withdrawn. The upper pole of the stomach was bathed using normal saline solution. The scope was withdrawn with careful inspection along the staple line for which no leaks were found along the entire length. Additionally,the sleeve was completely hemostatic without any encroachment along the angularis incisura. Its topology was a soft "J". No stricture was encountered upon placement of the scope. The GI tract was desufflated. The patient tolerated this portion of the procedure well. The scope was completely withdrawn. The robot was undocked. I then rescrubbed into case, whereby the irrigation fluid was aspirated from the abdominal cavity. Tisseel fibrin sealant was placed along the entire staple length. Once dried the Bettye liver retractor was removed. Attention was now brought to removal of the specimen. The distal end of the sleeve gastrectomy specimen was brought out through the 12 mm port at the left upper quadrant. The specimen was gently removed en total. No contamination had occurred during this process. Sleeve gastrectomy, 30 cm x 5 cm. All instruments and pneumoperitoneum including irrigation fluid was removed from the abdominal cavity. The 12 mm port site was closed using 0-Vicryl and Gopal Kruegerson and irrigated with diluted hydrogen peroxide. The final incisions were closed using subcuticular interrupted suture of 4-0 Monocryl. Exofin was applied to the skin once the skin had been cleansed. OptiFoam dressing was placed along the stomach extraction site. The sleeve specimen was measured and checked also for leaks which none were found. At the end of the procedure, needle, sponge, and instrument count was verified correct by the surgical training specialist. The patient was taken to the postanesthesia care unit in stable condition. She had tolerated the procedure well. Intraoperative films and findings were reviewed with the patient's family.
[2022-06-29] MEDS: ONDANSETRON 4 MG/2 ML VIAL IVP SCH (20:02)
[2022-06-29] MEDS ORDERED: PANTOPRAZOLE 40 MG/10 ML VIAL IV SCH (21:00)
[2022-06-29] MEDS: FAMOTIDINE 20 MG/2 ML VIAL IV SCH (21:31)
[2022-06-29] MEDS: LEVOTHYROXINE 137 MCG TAB PO SCH (21:31)
[2022-06-29] MEDS: SIMETHICONE 80 MG CHEWABLE PO SCH (21:31)
[2022-06-29] MEDS: 0.9% NACL WITH KCL 20 MEQ/L 1,000 ML IV SCH (21:31)
[2022-06-29] MEDS: metFORMIN 500 MG TAB PO SCH (21:41)
[2022-06-29] MEDS: ALBUTEROL NEBULIZED 2.5 MG/3 ML INHALATION SCH (21:44)
[2022-06-29] MEDS ORDERED: DEXTROSE 50% SYRINGE 50 ML IVP PRN ×2 (21:54)
[2022-06-29 22:02] LABS: Glucose,Whole Blood 173 mg/dL (70-110)
[2022-06-29] MEDS ORDERED: fentaNYL PCA 500 MCG/50 ML BAG IV PRN (22:30)
[2022-06-30] MEDS ORDERED: ceFAZolin 3 GM in SODIUM CHLORIDE 0.9% 100 ML IVPB SCH ×2
[2022-06-30] MEDS: ACETAMINOPHEN IV (For NPO) 1,000 MG in EMPTY BAG 1 BAG IVPB SCH ×4 (01:04→18:35)
[2022-06-30] MEDS: ONDANSETRON 4 MG/2 ML VIAL IVP SCH ×4 (01:05→18:36)
[2022-06-30] MEDS: KETOROLAC 15 MG/ML 1 ML VIAL IVP SCH ×4 (01:05→18:36)
[2022-06-30] MEDS: HYOSCYAMINE ORAL DROPS 1.875 MG/15 ML BOTTLE PO SCH ×4 (01:06→18:42)
[2022-06-30] MEDS: 0.9% NACL WITH KCL 20 MEQ/L 1,000 ML IV SCH ×3 (04:44→21:24)
[2022-06-30 06:16] LABS: Glucose,Whole Blood 126 mg/dL (70-110)
[2022-06-30] MEDS: INSULIN ASPART (NovoLOG) 100 UNIT/ML VIAL SQ SCH ×4 (06:25→22:51)
[2022-06-30] MEDS: FAMOTIDINE 20 MG/2 ML VIAL IV SCH ×2 (08:24→22:09)
[2022-06-30] MEDS: SIMETHICONE 80 MG CHEWABLE PO SCH ×2 (08:24→22:09)
[2022-06-30] MEDS: ENOXAPARIN 40 MG/0.4 ML SYRINGE SQ SCH (08:24)
[2022-06-30 09:30] LABS: African American GFR (CKD) 107.6 (60.0-200.0); Anion Gap 13.3 mmol/L (10.00-18.00); Blood Urea Nitrogen 8.8 mg/dL (9.0-27.0); Calcium 8.7 mg/dL (8.7-10.3); Carbon Dioxide 23.7 mmol/L (20.0-27.5); Non-African American GFR(CKD) 92.9 (60.0-200.0); Phosphorus 3.2 mg/dL (2.4-5.1); Potassium 4.7 mmol/L (3.5-5.5)
[2022-06-30] MEDS: ALBUTEROL NEBULIZED 2.5 MG/3 ML INHALATION SCH ×4 (09:35→19:55)
[2022-06-30 09:38] LABS: Basophils # (A) 0.03 X 10*3/uL (0.00-0.10); Basophils % (A) 0.3 %; Eosinophils # (A) 0 X 10*3/uL (0.04-0.35); Eosinophils % (A) 0 %; HCT 40.5 % (37.2-46.3); HGB 13.2 g/dL (12.0-15.0); Immature Grans, Automated 0.7 %; Lymphocytes # (A) 0.95 X 10*3/uL (0.90-5.00); Lymphocytes % (A) 10.1 %; MCH 30.8 pg (27.0-32.0); MCHC 32.6 g/dL (32.0-37.0); MCV 94.4 fL (80.0-97.0); Mean Platelet Volume 10.8 fL (9.5-12.2); Monocytes # (A) 0.36 X 10*3/uL (0.20-1.00); Monocytes % (A) 3.8 %; NRBC Per 100 WBC 0 /100 WBCS (0.0-0.0); Neutrophils # (A) 7.95 X 10*3/uL (1.80-7.70); Neutrophils % (A) 85.1 %; Platelet Count 199 X 10*3/uL (140-440); RBC 4.29 X 10*6/uL (4.10-5.20); RDW 13.6 % (11.5-14.5); WBC 9.36 X 10*3/uL (4.50-10.00)
[2022-06-30 09:43] LABS: Magnesium 1.9 mg/dL (1.5-2.4)
[2022-06-30 11:33] LABS: Glucose,Whole Blood 117 mg/dL (70-110)
--- NOTE | 2022-06-30 12:00 | XR ---
EXAMINATION TYPE: XR abdomen 2V DATE OF EXAM: 06/30/2022 COMPARISON: 08/26/2015 INDICATION: Post bariatric surgery gastric sleeve TECHNIQUE: Abdomen examination in the upright view frontal lateral and both oblique views. Patient dr ank water-soluble contrast prior to imaging. Attempts to place the patient into the fluoroscopy machi ne were unsuccessful due to patient size. Exam is limited. FINDINGS: Contrast passes through the gastric sleeve without obvious hesitancy. No extravasation is identified. Contrast enters the duodenum. Gastroesophageal junction region appears normal. No free air is identi fied. IMPRESSION: 1. No obvious stenosis or extravasation. 2. Exam is limited to x-ray due to patient's size.
[2022-06-30 12:25] VITALS: BMI 66.0
[2022-06-30] MEDS ORDERED: SIMETHICONE 40 MG/0.6 ML DROPS 2,000 MG/30 ML BOTTLE PO SCH (13:00)
--- NOTE | 2022-06-30 14:50 | P.PN ---
Subjective Progress Note Date: 06/30/22 CHIEF COMPLAINT: Morbid obesity HISTORY OF PRESENT ILLNESS: Patient is postop day #1 status post robotic- assisted laparoscopic sleeve gastrectomy. Patient had complained of increased pain during the night. Patient reporting that her pain is doing better this morning. However, she is still requiring the MAIL TECHNICIAN pump to help with pain control. She denies any nausea or vomiting. She does report belching. She has been up and ambulating. Denies any difficulty with urinating. Afebrile. Upper GI was canceled and abdominal x-ray completed showing no obvious stenosis or extravasation. WBC is 9.36 Hgb 13.2 platelets 199 sodium is 139 potassium 4.7 creatinine 0.7 hemoglobin A1c 5.6 magnesium 1.9 phosphorus 3.2 PHYSICAL EXAM: VITAL SIGNS: Reviewed GENERAL: Well-developed in no acute distress. HEENT: No sclera icterus. Extraocular movements grossly intact. Moist buccal mucosa. Head is atraumatic, normocephalic. Hears conversational speech. No nasal drainage. NECK: Supple without lymphadenopathy. CHEST: Non-labored respirations and equal bilateral excursions. CARDIOVASCULAR: Palpable 2+ radial pulses. ABDOMEN: Soft. Nondistended. Nontender. MUSCULOSKELETAL: No clubbing or cyanosis. NEUROLOGIC: No focal or lateralizing signs. Cranial nerves II through XII grossly intact. PSYCH: Appropriate affect. Alert and oriented to person, place and time. SKIN: Well perfused. Good skin turgor. ASSESSMENT: 1. Morbid obesity due to excess calories. 2. Body mass index initial 72.1 3. Moderate to severe chronic obstructive sleep apnea, noncompliant with therapy. 4. Former tobacco use. 5. Hypothyroidism. 6. Fibromyalgia. 7. Gastroesophageal reflux disease. 8. Anxiety. 9. Family history of morbid obesity. 10. Osteoarthritis of lower back secondary to morbid obesity. 11. Osteoarthritis of the knee secondary to morbid obesity. 12. Osteoarthritis of the left ankle secondary to morbid obesity. 13. Prior history of depression. 14. Gastritis. 15. Adverse reaction to omeprazole. 16. Fatty liver disease with early micronodular cirrhosis PLAN: -Anticipate discharge tomorrow -Continue pain control -Continue bariatric clear liquid diet -Continue IV fluids -Encouraged patient to ambulate -Encouraged patient to use incentive spirometer -DVT prophylaxis Lovenox Physician Shank Breaker note has been reviewed by physician. Signing provider agrees with the documented findings, assessment, and plan of care. Objective - Vital Signs Vital signs: Vital Signs Temp 97.9 F 06/30/22 07:05 Pulse 80 06/30/22 09:45 Resp 18 06/30/22 07:05 BP 147/83 06/30/22 07:05 Pulse Ox 96 06/30/22 09:35 FiO2 21 06/30/22 04:27 Intake & Output 06/29/22 06/30/22 06/30/22 18:59 06:59 18:59 Intake Total 1500 Output Total 5 1999 Balance 1495 -1999 Weight 174.5 kg 174.5 kg Intake: IV 1500 Output: Urine 1999 Estimated Blood Loss 5 Other: Voiding Method Toilet - Labs CBC & Chem 7: 06/30/22 04:07 06/30/22 04:07 Labs: Abnormal Lab Results - Last 24 Hours (Table) 06/29/22 06/29/22 06/30/22 Range/Units 18:50 22:00 04:07 Immature Gran # 0.07 H (0.00-0.04) X 10*3/uL Neutrophils # 7.95 H (1.80-7.70) X 10*3/uL Eosinophils # 0 L (0.04-0.35) X 10*3/uL BUN (9.0-27.0) mg/dL POC Glucose (mg/dL) 167 H 173 H (70-110) mg/dL 06/30/22 06/30/22 06/30/22 Range/Units 04:07 06:14 11:31 Immature Gran # (0.00-0.04) X 10*3/uL Neutrophils # (1.80-7.70) X 10*3/uL Eosinophils # (0.04-0.35) X 10*3/uL BUN 8.8 L (9.0-27.0) mg/dL POC Glucose (mg/dL) 126 H 117 H (70-110) mg/dL
[2022-06-30] MEDS: LACTATED RINGERS 1,000 ML IV SCH (14:52)
[2022-06-30 16:06] LABS: Glucose,Whole Blood 98 mg/dL (70-110)
[2022-06-30 21:28] LABS: Glucose,Whole Blood 103 mg/dL (70-110)
[2022-06-30] MEDS: metFORMIN 500 MG TAB PO SCH (22:09)
[2022-06-30] MEDS: LEVOTHYROXINE 137 MCG TAB PO SCH (22:09)
[2022-07-01] MEDS: KETOROLAC 15 MG/ML 1 ML VIAL IVP SCH ×3 (00:48→12:20)
[2022-07-01] MEDS: ACETAMINOPHEN IV (For NPO) 1,000 MG in EMPTY BAG 1 BAG IVPB SCH ×2 (00:48→06:04)
[2022-07-01] MEDS: ONDANSETRON 4 MG/2 ML VIAL IVP SCH ×2 (00:49→06:05)
[2022-07-01] MEDS: SIMETHICONE 80 MG CHEWABLE PO SCH ×2 (00:49→08:44)
[2022-07-01] MEDS: HYOSCYAMINE ORAL DROPS 1.875 MG/15 ML BOTTLE PO SCH ×2 (00:50→06:05)
[2022-07-01] MEDS: 0.9% NACL WITH KCL 20 MEQ/L 1,000 ML IV SCH (04:05)
[2022-07-01 05:53] LABS: Glucose,Whole Blood 116 mg/dL (70-110)
[2022-07-01] MEDS: INSULIN ASPART (NovoLOG) 100 UNIT/ML VIAL SQ SCH (06:11)
[2022-07-01 07:21] VITALS: BP 124/71; PULSE 86; RESP 16; TEMP 98.1
[2022-07-01] MEDS: ALBUTEROL NEBULIZED 2.5 MG/3 ML INHALATION SCH ×2 (08:39→11:28)
[2022-07-01] MEDS: FAMOTIDINE 20 MG/2 ML VIAL IV SCH (08:44)
[2022-07-01] MEDS: ENOXAPARIN 40 MG/0.4 ML SYRINGE SQ SCH (08:44)
[2022-07-01 11:10] LABS: Glucose,Whole Blood 105 mg/dL (70-110)
--- NOTE | 2022-07-01 11:14 | P.DS ---
Providers Date of admission: 06/29/22 14:36 Expected date of discharge: 07/01/22 Attending physician: Kellie Pittman Primary care physician: Josette Charles Hospital Course: Discharge diagnosis 1. Morbid obesity due to excess calories. 2. Body mass index initial 72.1 3. Moderate to severe chronic obstructive sleep apnea, noncompliant with therapy. 4. Former tobacco use. 5. Hypothyroidism. 6. Fibromyalgia. 7. Gastroesophageal reflux disease. 8. Anxiety. 9. Family history of morbid obesity. 10. Osteoarthritis of lower back secondary to morbid obesity. 11. Osteoarthritis of the knee secondary to morbid obesity. 12. Osteoarthritis of the left ankle secondary to morbid obesity. 13. Prior history of depression. 14. Gastritis. 15. Adverse reaction to omeprazole. 16. Fatty liver disease with early micronodular cirrhosis Hospital course Vianney Gruber is a 62-year-old female who presents with lifelong morbid obesity. She is status post Robotic assisted daVinci Xi laparoscopic sleeve gastrectomy. Abdominal x-ray shows no obvious stenosis or extravasation. Patient's pain is controlled. She is tolerating diet. She has been up and ambulating. She is having flatus. She's afebrile. She is stable for discharge. Physician Revival Clerk note has been reviewed by physician. Signing provider agrees with the documented findings, assessment, and plan of care. Patient Condition at Discharge: Stable Plan - Discharge Summary Discharge Rx Participant: Yes New Discharge Prescriptions: New Ondansetron Odt [Zofran Odt] 4 mg PO Q8HR PRN #9 tab PRN Reason: Nausea Acetaminophen Tab [Tylenol] 1,000 mg PO Q6HR PRN #30 tablet PRN Reason: Pain bisacodyL [Dulcolax] 5 mg PO DAILY PRN #10 tab PRN Reason: Constipation Simethicone 40 mg/0.6 ml Drops [Mylicon Drops] 40 mg PO PCHS PRN #30 ml PRN Reason: Gas Omeprazole [PriLOSEC] 40 mg PO DAILY #30 cap Continue Levothyroxine Sodium [Synthroid] 137 mcg PO HS metFORMIN HCL 500 mg PO HS Restful Legs 1 tab PO DIRECTED PRN PRN Reason: leg cramps Rimegepant Sulfate [Nurtec Odt] 75 mg PO DIRECTED PRN PRN Reason: Migraine Headache LORazepam [Ativan] 0.5 mg PO BID PRN PRN Reason: Anxiety Discharge Medication List Levothyroxine Sodium [Synthroid] 137 mcg PO HS 09/29/17 [History] Restful Legs 1 tab PO DIRECTED PRN 06/24/22 [History] Rimegepant Sulfate [Nurtec Odt] 75 mg PO DIRECTED PRN 06/24/22 [History] LORazepam [Ativan] 0.5 mg PO BID PRN 06/26/22 [History] metFORMIN HCL 500 mg PO HS 06/26/22 [History] Acetaminophen Tab [Tylenol] 1,000 mg PO Q6HR PRN #30 tablet 07/01/22 [Rx] Omeprazole [PriLOSEC] 40 mg PO DAILY #30 cap 07/01/22 [Rx] Ondansetron Odt [Zofran Odt] 4 mg PO Q8HR PRN #9 tab 07/01/22 [Rx] Simethicone 40 mg/0.6 ml Drops [Mylicon Drops] 40 mg PO PCHS PRN #30 ml 07/01/22 [Rx] bisacodyL [Dulcolax] 5 mg PO DAILY PRN #10 tab 07/01/22 [Rx] Follow up Appointment(s)/Referral(s): [place], [place] [NON-STAFF] - 07/03/22 9:00 am Activity/Diet/Wound Care/Special Instructions: Liquid diet only for 2 weeks No lifting over 4 pounds in 4 weeks May Shower. No soaking in bath tubs for 2 weeks Please notify your surgeon if you develop nausea and vomiting including new onset of abdominal pain. Continue to use incentive spirometry to prevent pneumonias. Please continue to ambulate at home to prevent blood clots in legs. Follow-up at the bariatric center. May shower. Dressings to be discontinued by surgeon in the office. Drink 64 oz of fluid daily. Start protein shakes on . Notify bariatric center for temp over 101.0, increased pain, drainage from incisions. No straws or carbonated beverages. Liquid diet only. Sugar content should be less than 6 g to avoid dumping syndrome. Take MOM for constipation. CRUSH, OPEN, OR CUT TABLETS LARGER THAN A SIZE OF A TIC TAC Discharge Disposition: HOME SELF-CARE
== END 2022-07-01 13:44 | disposition home or self-care (01) | DRG 621 ==
LOC: 2ORMAIN 14:36 → 4SSUR 19:08
PROVIDERS: ADMIT Surgery Plastic and Reconstructive Surgery; ATTEND Surgery Plastic and Reconstructive Surgery
PROC: 0DJ08ZZ Inspection of Upper Intestinal Tract, Via Natural or Artificial Opening Endoscopic (ICD-10-PCS; principal; 2022-06-29 16:15)
PROC: 8E0W4CZ Robotic Assisted Procedure of Trunk Region, Percutaneous Endoscopic Approach (ICD-10-PCS; principal; 2022-06-29 16:15)
PROC: 0DB64Z3 Excision of Stomach, Percutaneous Endoscopic Approach, Vertical (ICD-10-PCS; principal; 2022-06-29 16:15)
DX: E66.01 Morbid (severe) obesity due to excess calories (principal); K74.69 Other cirrhosis of liver; R16.0 Hepatomegaly, not elsewhere classified; I11.9 Hypertensive heart disease without heart failure; Z68.44 Body mass index [BMI] 60.0-69.9, adult; K76.0 Fatty (change of) liver, not elsewhere classified; E03.9 Hypothyroidism, unspecified; F32.A Depression, unspecified; G47.33 Obstructive sleep apnea (adult) (pediatric); M79.7 Fibromyalgia; F41.9 Anxiety disorder, unspecified; N73.6 Female pelvic peritoneal adhesions (postinfective); I83.90 Asymptomatic varicose veins of unspecified lower extremity; R73.03 Prediabetes; K21.9 Gastro-esophageal reflux disease without esophagitis; G43.909 Migraine, unspecified, not intractable, without status migrainosus; K29.70 Gastritis, unspecified, without bleeding; M17.5 Other unilateral secondary osteoarthritis of knee; M19.272 Secondary osteoarthritis, left ankle and foot; M47.9 Spondylosis, unspecified; M25.562 Pain in left knee; M25.561 Pain in right knee; Z91.199 Patient's noncompliance with other medical treatment and regimen due to unspecified reason; Z79.890 Hormone replacement therapy; Z79.84 Long term (current) use of oral hypoglycemic drugs; Z79.899 Other long term (current) drug therapy; Z71.3 Dietary counseling and surveillance; Z87.442 Personal history of urinary calculi; Z87.891 Personal history of nicotine dependence; Z98.1 Arthrodesis status; Z88.5 Allergy status to narcotic agent; Z88.8 Allergy status to other drugs, medicaments and biological substances
CPT/HCPCS: 74019; 80051; 82310; 82565; 83036; 83735; 84100; 84520; 85025; 86850; 86900; 86901; 88307; 94640; 94660; 94760

== ENCOUNTER → 2022-07-03 | Outpatient (CLI) | payer MEDICAID ==
[2022-07-03 09:58] LABS: Glucose,Whole Blood 106 mg/dL (70-110)
[2022-07-03 10:30] VITALS: BP 143/82; PULSE 76; RESP 12; TEMP 98.6; BMI 66.0
--- NOTE | 2022-07-06 20:57 | P.BASOAP ---
Subjective Progress Note Date: 07/03/22 DATE OF SERVICE: 07/03/2022 CHIEF COMPLAINT: Status post sleeve gastrectomy HISTORY OF PRESENT ILLNESS: Vianney Gruber is a 62-year-old female status post sleeve gastrectomy, 06/29/22. She is POD 4. She is doing well. She reports appropriate left upper quadrant pain. She is passing flatus. No nausea and vomiting. Oral intake adequate. For her height of 5 foot 3 inches, her ideal body weight is 140 pounds. Her highest weight is 404 pounds, her body mass index 71.4. She comes in 381 pounds from 402 pounds in 2 weeks. She has lost 21 pounds in 2 weeks. Body mass index down from 71.4 to 67.6. Lifetime weight loss is 21 pounds. Percent excess lifetime weight loss is 8%. She is 241 pounds overweight. PHYSICAL EXAM: Vitals: Height 5 foot 3 in. Weight 381 pounds, BMI 66.0 Vital Signs Temp 98.6 F 07/03/22 10:17 Pulse 76 07/03/22 10:17 Resp 12 07/03/22 10:17 BP 143/82 07/03/22 10:17 Pulse Ox FiO2 GENERAL: Well-developed female no acute distress. ABDOMEN: Incisions clean dry and intact. No infection. Dressing demonstrates no infection after removal. HEENT: No scleral icterus. Extraocular movements grossly intact. Moist buccal mucosa. NECK: Supple without lymphadenopathy. CHEST: Nonlabored respirations with equal bilateral excursions. CARDIOVASCULAR: Regular rate and rhythm. MUSCULOSKELETAL: No clubbing, cyanosis, or edema. NEURO: No focal or lateralizing signs. Cranial nerves II through XII grossly within normal limits. PSYCH: Appropriate affect. Alert and oriented to person, place and time. SKIN: Well perfused. Good skin turgor. ASSESSMENT: 1. Morbid obesity due to excess calories, initial BMI 71.7 to 67.6 2. Generalized anxiety disorder. 3. Fibromyalgia. 4. Depressive disorder 5. Hypothyroidism. 6. Osteoarthritis of the lower back. 7. Osteoarthritis of the left ankle. 8. Osteoarthritis of the knee, bilateral 9. Gastroesophageal reflux disease. 10. Overactive bladder 11. Obstructive sleep apnea. 12. Bilateral lower extremity edema 13. Diabetes type 2, [id number] 14. Migraines 15. Gout 16. Kidney stones 17. Status post sleeve gastrectomy. PLAN: 1. Follow up closely next week in 1 week. 2. May start protein diet. 3. All questions addressed. Objective - Vital Signs Vital signs: Vital Signs Temp 98.6 F 07/03/22 10:17 Pulse 76 07/03/22 10:17 Resp 12 07/03/22 10:17 BP 143/82 07/03/22 10:17 Pulse Ox FiO2 Assessment/Plan Plan: Date: 07/03/22 Initial Weight: 183.705 kg Initial BMI: 70.0 Current Weight: 173.136 kg Current BMI: 66.0 Type of Surgery: Total Volume in Band: Previous Volume: Volume Removed: Volume Added: Band Size:
== END ==
LOC: BARWHC3 09:01
PROVIDERS: ATTEND Surgery Plastic and Reconstructive Surgery
DX: E66.01 Morbid (severe) obesity due to excess calories (principal); F41.9 Anxiety disorder, unspecified; E03.9 Hypothyroidism, unspecified; G47.33 Obstructive sleep apnea (adult) (pediatric); Z98.84 Bariatric surgery status; F32.A Depression, unspecified; E11.9 Type 2 diabetes mellitus without complications; M79.7 Fibromyalgia; M19.072 Primary osteoarthritis, left ankle and foot; M17.0 Bilateral primary osteoarthritis of knee; K21.9 Gastro-esophageal reflux disease without esophagitis; R22.43 Localized swelling, mass and lump, lower limb, bilateral; N32.81 Overactive bladder; G43.909 Migraine, unspecified, not intractable, without status migrainosus; N22 Calculus of urinary tract in diseases classified elsewhere; M10.9 Gout, unspecified; N20.0 Calculus of kidney; Z91.048 Other nonmedicinal substance allergy status; Z88.5 Allergy status to narcotic agent; Z88.8 Allergy status to other drugs, medicaments and biological substances; Z79.890 Hormone replacement therapy; Z68.44 Body mass index [BMI] 60.0-69.9, adult; Z87.891 Personal history of nicotine dependence
CPT/HCPCS: 99211

== ENCOUNTER → 2022-07-15 | Outpatient (CLI) | payer MEDICAID ==
[2022-07-15 13:03] VITALS: BP 144/83; PULSE 93; RESP 12; TEMP 98; BMI 63.6
--- NOTE | 2022-07-15 13:51 | P.BASOAP ---
Subjective Progress Note Date: 07/15/22 She lost 35 pounds in 3 weeks. She reports diarrhea in the morning. No moderate abdominal pain. She has bra line chest pain. 1 month ago surgery. Plan for swimming 1 nico after surgery. No infrection. GasX advised. Avoid high sugar and straws. Sent gasx and skylar with d. Objective - Vital Signs Vital signs: Vital Signs Temp 98.0 F 07/15/22 12:53 Pulse 93 07/15/22 12:53 Resp 12 07/15/22 12:53 BP 144/83 07/15/22 12:53 Pulse Ox FiO2 Intake & Output 07/14/22 07/15/22 07/15/22 18:59 06:59 18:59 Weight 166.967 kg Assessment/Plan Plan: Date: 07/15/22 Initial Weight: 183.705 kg Initial BMI: 70.0 Current Weight: 166.967 kg Current BMI: 63.6 Type of Surgery: Total Volume in Band: Previous Volume: Volume Removed: Volume Added: Band Size:
== END ==
LOC: BARWHC3 12:46
PROVIDERS: ATTEND Surgery Plastic and Reconstructive Surgery
DX: E66.01 Morbid (severe) obesity due to excess calories (principal); Z68.44 Body mass index [BMI] 60.0-69.9, adult; Z88.8 Allergy status to other drugs, medicaments and biological substances; Z88.5 Allergy status to narcotic agent; Z91.048 Other nonmedicinal substance allergy status; Z87.891 Personal history of nicotine dependence
CPT/HCPCS: 97802; 99211

== ENCOUNTER → 2022-07-24 | Outpatient (CLI) | payer MEDICAID ==
[2022-07-24 15:27] LABS: Partial Thromboplastin Time 38.4 sec (22.0-30.0); Prothrombin Time 10.8 sec (9.0-12.0)
[2022-07-25 01:26] LABS: HGB 14.2 gm/dL (11.4-16.0); MCH 30.7 pg (25.0-35.0); MCHC 32.3 g/dL (31.0-37.0); Mean Platelet Volume 9.7; Platelet Count 244 k/uL (150-450); RBC 4.63 m/uL (3.80-5.40); RDW 13.7 % (11.5-15.5); WBC 7.3 k/uL (3.8-10.6)
[2022-07-26 09:25] LABS: % Iron Saturation 17.84; ALT 38 U/L; AST 41 U/L; Albumin 4.2 d/dL; Albumin/Globulin Ratio 1.62 Ratio; Alkaline Phosphatase 69 U/L; BUN/Creat Ratio 17.67 Ratio; Blood Urea Nitrogen 15.9 mg/dL; Calcium 9.7 mg/dL; Carbon Dioxide 25.5 mmol/L; Chloride 102 mmol/L; Chol/HDL Ratio 3.47 Ratio; Ferritin 154 ng/mL; Globulin 2.6 d/dL; Glucose 111 mg/dL; Iron 66 UG/DL; LDL Cholesterol,Calculated 78.3 mg/dL; Magnesium 1.8 mg/dL; Phosphorus 3.6 mg/dL; Potassium 3.6 mmol/L; Sodium 141 mmol/L; Total Bilirubin 0.6 mg/dL; Total Iron Binding Capacity 370 UG/DL; Total Protein 6.8 d/dL
[2022-07-26 10:50] LABS: Prealbumin 16.4 mg/dL
== END | disposition home or self-care (01) ==
LOC: LABWHC1 14:01
PROVIDERS: ATTEND Surgery Plastic and Reconstructive Surgery
DX: E66.01 Morbid (severe) obesity due to excess calories (principal); E89.1 Postprocedural hypoinsulinemia; D50.8 Other iron deficiency anemias; K91.2 Postsurgical malabsorption, not elsewhere classified; E44.0 Moderate protein-calorie malnutrition; E44.1 Mild protein-calorie malnutrition; E45 Retarded development following protein-calorie malnutrition; E55.9 Vitamin D deficiency, unspecified; K74.1 Hepatic sclerosis; N19 Unspecified kidney failure; T56.894A Toxic effect of other metals, undetermined, initial encounter; K50.90 Crohn's disease, unspecified, without complications
CPT/HCPCS: 36415; 80053; 80061; 82306; 82525; 82607; 82728; 82746; 83036; 83540; 83550; 83735; 83970; 84100; 84134; 84255; 84425; 84443; 84590; 84630; 85027; 85610; 85730

== ENCOUNTER → 2022-08-05 | Outpatient (CLI) | payer MEDICAID ==
[2022-08-05 13:39] VITALS: BP 154/84; PULSE 87; TEMP 98.6; BMI 62.6
--- NOTE | 2022-08-05 14:45 | P.BASOAP ---
Subjective Progress Note Date: 08/05/22 She complains of new epigastric pain and radioation to the LUQ. She has pain with movement. She reports burning and sharp pain. NO fevers. NO shoulder pain. Hold MVI. Trial of different shake. May benefit EGD check. Esophagram. Gas pills help.Sent gasx and tums. Objective - Vital Signs Vital signs: Vital Signs Temp 98.6 F 08/05/22 13:35 Pulse 87 08/05/22 13:35 Resp BP 154/84 08/05/22 13:35 Pulse Ox FiO2 Intake & Output 08/04/22 08/05/22 08/05/22 18:59 06:59 18:59 Weight 164.2 kg Assessment/Plan Plan: Date: 08/05/22 Initial Weight: 183.705 kg Initial BMI: 70.0 Current Weight: 164.2 kg Current BMI: 62.6 Type of Surgery: Total Volume in Band: Previous Volume: Volume Removed: Volume Added: Band Size:
== END ==
LOC: BARWHC3 12:53
PROVIDERS: ATTEND Surgery Plastic and Reconstructive Surgery
DX: E66.01 Morbid (severe) obesity due to excess calories (principal); Z68.44 Body mass index [BMI] 60.0-69.9, adult; Z88.5 Allergy status to narcotic agent; Z91.048 Other nonmedicinal substance allergy status; Z88.8 Allergy status to other drugs, medicaments and biological substances; Z87.891 Personal history of nicotine dependence
CPT/HCPCS: 97803; 99211

== ENCOUNTER → 2022-10-07 | Outpatient (CLI) | payer MEDICAID ==
[2022-10-07 16:30] VITALS: BP 168/80; PULSE 96; TEMP 98.1; BMI 59.1
--- NOTE | 2022-10-10 09:20 | P.BASOAP ---
Subjective Progress Note Date: 10/07/22 She has lost 60 pounds. She can have coffee. She is pending to take ibupofren. Protein intake is 60 grams. Needs more protein. Looking to lose more weight. Objective - Vital Signs Vital signs: Vital Signs Temp 98.1 F 10/07/22 16:26 Pulse 96 10/07/22 16:26 Resp BP 168/80 10/07/22 16:26 Pulse Ox FiO2 Assessment/Plan Plan: Date: 10/07/22 Initial Weight: 183.705 kg Initial BMI: 70.0 Current Weight: 155.129 kg Current BMI: 59.1 Type of Surgery: Total Volume in Band: Previous Volume: Volume Removed: Volume Added: Band Size:
== END ==
LOC: BARWHC3 16:18
PROVIDERS: ATTEND Surgery Plastic and Reconstructive Surgery
DX: Z53.9 Procedure and treatment not carried out, unspecified reason (principal)
CPT/HCPCS: 99211

== ENCOUNTER → 2022-12-14 | Outpatient (CLI) | payer MEDICAID ==
[2022-12-14 16:38] LABS: INR 0.9 (<1.2); Partial Thromboplastin Time 41.3 sec (22.0-30.0); Prothrombin Time 10.3 sec (10.0-12.5)
[2022-12-15 02:35] LABS: HCT 43.5 % (37.2-46.3); MCHC 32.2 d/dL (32.0-37.0); MCV 96.2 FL (80.0-97.0); Mean Platelet Volume 11.5 FL (9.5-12.2); NRBC Per 100 WBC 0 X 10*3/uL (0.00-0.01); Platelet Count 255 X 10*3/uL (140-440); RBC 4.52 X 10*6/uL (4.10-5.20); RDW 13.2 % (11.5-14.5); WBC 10.34 X 10*3/uL (4.50-10.00)
[2022-12-15 03:44] LABS: % Iron Saturation 23.34 (12.00-45.00); ALT 22 U/L (8-44); AST 27 U/L (13-35); Alkaline Phosphatase 83 U/L (41-126); BUN/Creat Ratio 21.29 Ratio (12.00-20.00); Blood Urea Nitrogen 14.9 mg/dL (9.0-27.0); Calcium 9.6 mg/dL (8.7-10.3); Carbon Dioxide 23.4 mmol/L (21.6-31.8); Chloride 103 mmol/L (96-109); Chol/HDL Ratio 2.85 Ratio; Globulin 2.5 d/dL (1.6-3.3); Glucose 93 mg/dL (70-110); Iron 81 UG/DL (50-170); Magnesium 1.9 mg/dL (1.5-2.4); Phosphorus 4.1 mg/dL (2.4-5.1); Potassium 4.2 mmol/L (3.5-5.5); Sodium 141 mmol/L (135-145); Total Bilirubin 0.5 mg/dL (0.3-1.2); Total Iron Binding Capacity 347 UG/DL (228-460); Total Protein 6.5 d/dL (6.2-8.2)
[2022-12-15 04:48] LABS: Prealbumin 17.9 mg/dL (18.0-42.0)
[2022-12-15 06:35] LABS: LDL Cholesterol,Calculated 77.9 mg/dL (0.0-131.0)
== END | disposition home or self-care (01) ==
LOC: LABWHC1 13:57
PROVIDERS: ATTEND Surgery Plastic and Reconstructive Surgery
DX: E66.01 Morbid (severe) obesity due to excess calories (principal); E89.1 Postprocedural hypoinsulinemia; D50.8 Other iron deficiency anemias; K91.2 Postsurgical malabsorption, not elsewhere classified; E44.0 Moderate protein-calorie malnutrition; E44.1 Mild protein-calorie malnutrition; E45 Retarded development following protein-calorie malnutrition; E46 Unspecified protein-calorie malnutrition; E55.9 Vitamin D deficiency, unspecified; K74.1 Hepatic sclerosis; N19 Unspecified kidney failure; T56.894A Toxic effect of other metals, undetermined, initial encounter; K50.90 Crohn's disease, unspecified, without complications
CPT/HCPCS: 36415; 80053; 80061; 82306; 82525; 82607; 82728; 82746; 83036; 83540; 83550; 83735; 83970; 84100; 84134; 84255; 84425; 84443; 84630; 85027; 85610; 85730

== ENCOUNTER → 2024-01-26 | Outpatient (CLI) | payer OTHER ==
[2024-01-26 14:38] LABS: INR 0.9 (<1.2); Partial Thromboplastin Time 41.2 sec (22.0-30.0); Prothrombin Time 10.4 sec (10.0-12.5)
[2024-01-26 19:21] LABS: Prealbumin 19.9 mg/dL (18.0-42.0)
[2024-01-26 19:27] LABS: HCT 40.5 % (37.2-46.3); HGB 13.1 g/dL (12.0-15.0); MCH 30.5 pg (27.0-32.0); MCHC 32.3 g/dL (32.0-37.0); MCV 94.4 FL (80.0-97.0); Mean Platelet Volume 10.5 FL (9.5-12.2); NRBC Per 100 WBC 0 X 10*3/uL (0.00-0.01); Platelet Count 270 X 10*3/uL (140-440); RBC 4.29 X 10*6/uL (4.10-5.20); RDW 12.5 % (11.5-14.5); WBC 8.77 X 10*3/uL (4.50-10.00)
[2024-01-26 19:56] LABS: % Iron Saturation 25.31 (12.00-45.00); Blood Urea Nitrogen 13.3 mg/dL (9.0-27.0); Chloride 102 mmol/L (96-109); Chol/HDL Ratio 2.59 Ratio; Glucose 95 mg/dL (70-110); Iron 103 UG/DL (50-170); LDL Cholesterol,Calculated 96.3 mg/dL (0.0-131.0); Magnesium 1.8 mg/dL (1.5-2.4); Phosphorus 3.8 mg/dL (2.4-5.1); Potassium 4.1 mmol/L (3.5-5.5); Sodium 140 mmol/L (135-145); Total Iron Binding Capacity 407 UG/DL (228-460)
[2024-01-26 19:57] LABS: ALT 16 U/L (8-44); AST 20 U/L (13-35); Albumin 4.2 g/dL (3.8-4.9); Albumin/Globulin Ratio 1.68 Ratio (1.60-3.17); Alkaline Phosphatase 83 U/L (41-126); Calcium 9.4 mg/dL (8.7-10.3); Carbon Dioxide 26.2 mmol/L (21.6-31.8); Ferritin 85.4 ng/mL (10.0-291.0); Globulin 2.5 g/dL (1.6-3.3); Total Bilirubin 0.7 mg/dL (0.3-1.2); Total Protein 6.7 g/dL (6.2-8.2)
[2024-01-27 12:20] LABS: Zinc, Serum 77 ug/dL (60-130)
[2024-01-28 05:58] LABS: Vitamin A 49 ug/dL (38-106)
[2024-01-28 06:25] LABS: Vit B1(Thiamine) 58 ug/L (38-122)
== END | disposition home or self-care (01) ==
LOC: LABWHC1 13:58
PROVIDERS: ATTEND Surgery Plastic and Reconstructive Surgery
DX: E66.01 Morbid (severe) obesity due to excess calories (principal); E89.1 Postprocedural hypoinsulinemia; D50.8 Other iron deficiency anemias; D50.9 Iron deficiency anemia, unspecified; K91.2 Postsurgical malabsorption, not elsewhere classified; E44.0 Moderate protein-calorie malnutrition; E45 Retarded development following protein-calorie malnutrition; E55.9 Vitamin D deficiency, unspecified; K74.1 Hepatic sclerosis; N19 Unspecified kidney failure; T56.894A Toxic effect of other metals, undetermined, initial encounter; K50.90 Crohn's disease, unspecified, without complications
CPT/HCPCS: 36415; 80053; 80061; 82306; 82525; 82607; 82728; 82746; 83036; 83540; 83550; 83735; 83970; 84100; 84134; 84255; 84425; 84443; 84590; 84630; 85027; 85610; 85730

== ENCOUNTER → 2024-01-26 | Outpatient (CLI) | payer OTHER ==
[2024-01-26 13:00] VITALS: BMI 56.9
[2024-01-26 13:02] VITALS: BP 134/79; PULSE 88; RESP 16; TEMP 98.4
--- NOTE | 2024-01-26 13:42 | P.BASOAP ---
Subjective Progress Note Date: 01/26/24 She gained 8 pounds in 1 year. NO belly pain. More gas. She is using Pepcid. Wants nystatin. Mild dysphagia. Food journal. BLood work. FU 1 month Objective - Vital Signs Vital signs: Vital Signs Temp 98.4 F 01/26/24 12:48 Pulse 88 01/26/24 12:48 Resp 16 01/26/24 12:48 BP 134/79 01/26/24 12:48 Pulse Ox FiO2 Intake & Output 01/25/24 01/26/24 01/26/24 18:59 06:59 18:59 Weight 149.232 kg Assessment/Plan Plan: Date: 01/26/24 Initial Weight: 183.705 kg Initial BMI: 70.0 Current Weight: 149.232 kg Current BMI: 56.9 Type of Surgery: Total Volume in Band: Previous Volume: Volume Removed: Volume Added: Band Size:
== END ==
LOC: BARWHC3 12:32
PROVIDERS: ATTEND Surgery Plastic and Reconstructive Surgery
DX: E66.01 Morbid (severe) obesity due to excess calories (principal); Z68.43 Body mass index [BMI] 50.0-59.9, adult; R13.10 Dysphagia, unspecified; Z87.891 Personal history of nicotine dependence; Z88.5 Allergy status to narcotic agent; Z91.048 Other nonmedicinal substance allergy status; Z88.8 Allergy status to other drugs, medicaments and biological substances
CPT/HCPCS: 99211